=== PATIENT | male | born 2000 | race Caucasian/White ===

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

== ENCOUNTER 2024-10-07 18:30 | Emergency (ER) | payer SELFPAY ==
[2024-10-07 18:31] VITALS: BP 149/100; PULSE 117; RESP 16; TEMP 37.1; O2SAT 99; BMI 34.9
--- NOTE | 2024-10-07 18:37 | ED.VIS.DYS ---
HPI History of Present Illness Chief Complaint: Shortness of Breath PFSH PFSH Medical History no medical history Home Medications ?Medication ?Instructions ?Recorded ?Last Taken ?Type NK 04/01/18 Unknown History Allergy/AdvReac Type Severity Reaction Status Date / Time No Known Allergies Allergy Verified 10/07/24 18:31 Social History (System 04/08/18 @ 08:04 by Haydee Smith) Smoking Status: Former smoker EXAM Physical Exam Const Vital Signs: 10/07/24 18:31 10/07/24 19:12 10/07/24 19:13 Temperature 98.7 F Temperature Source Oral Pulse Rate 117 H Respiratory Rate 16 Respiratory Effort Short of Breath Respiratory Depth Normal Respiratory Pattern Normal Blood Pressure 149/100 H Blood Pressure Mean 116 Pulse Ox 99 Oxygen Delivery Method Room Air Room Air 10/07/24 19:53 10/07/24 20:09 Temperature Temperature Source Pulse Rate 94 96 Respiratory Rate 12 16 Respiratory Effort Respiratory Depth Respiratory Pattern Blood Pressure 130/88 H Blood Pressure Mean 102 Pulse Ox 98 95 Oxygen Delivery Method Room Air Room Air MDM MDM MDM Narrative Medical decision making narrative: HISTORY OF PRESENT ILLNESS: Chief complaint: Diffuse weakness, dizzy 24-year-old male presents with weakness and dizziness for a few days. He further states he has been feeling well. Diffusely weak and dizzy. Denies vomiting. Denies recent illnesses. Does note a dry cough. Denies muscle aches. Denies bleeding diathesis. Denies chest pain. Denies family or personal history of sudden cardiac The patient denies recent surgery in the last 4 weeks or immobilization in the last 3 days, denies previous diagnosis of DVT or PE, hemoptysis, unilateral leg swelling or malignancy with treatment the last 6 months or palliative. No estrogen use noted. REVIEW OF SYSTEMS: Pertinent positives: Weakness, dizziness Pertinent negatives: Vomiting PHYSICAL EXAM: Nursing triage notes reviewed, Vital signs reviewed Constitutional: please see mdm HENT: MMM Eyes: Pupils equal round and reactive to light, Extraocular muscles intact Neck: No stridor, no JVD, full neck ROM Lungs: Clear to auscultation, No wheezing or rales. No increased work of breathing, no conversational dyspnea, no accessory muscle use, no nasal flaring. No respiratory distress noted Heart: Regular rate and rhythm, No murmurs, No rubs and No gallops, 2+ distal pulses (radial, femoral, posterior tibial) in all extremities Abdomen: Soft, there is no tenderness, rigidity, rebound or guarding, no obvious peritoneal signs, no palpable pulsatile abdominal masses, no auscultated abdominal bruit : No CVAT Extremities: No edema Neuro: No new focal neurological deficits, cranial nerves II through XII intact, 5/5 strength in all present extremities. Intact sensation to light touch in all present extremities, 2+ reflexes bilateral patella tendons. Skin: No rash or lesions noted MEDICAL DECISION MAKING: Chief Complaint: please see HPI External records reviewed: Reviewed prior cardiovascular testing. No recent echocardiograms or stress test noted in the chart Factors affecting care: none Social determinants of health: none History obtained from others: none Consults: none MDM Narrative: The patient was initially tachycardic heart rate 117 otherwise afebrile and nontoxic-appearing saturating 95% room air I considered the following differential diagnosis: Flu, pneumonia, ACS, arrhythmia, anemia, PE I obtained a broad lab and imaging workup to further elucidate the etiology of the patient's complaints ALL IMAGES (IF OBTAINED) HAVE BEEN PERSONALLY REVIEWED AND INTERPRETED BY MYSELF. EKG with sinus tachycardia rate of 122, normal axis, normal intervals, no sign of right heart strain, no STEMI D-dimer negative making VTE less likely BNP negative making heart failure less likely High-sensitivity troponin is negative, no evidence of myocardial ischemia COVID RSV flu negative I have personally reviewed the patient's chest x-ray. Chest x-ray is unremarkable for pulmonary edema, pneumothorax, pneumonia or focal cardiopulmonary abnormality. Upon reassessment patient heart rate improved from 117-96 The synthesis of the patient's history, physical exam, laboratory suggest no acute life-limiting etiology including PE, ACS, arrhythmia, anemia, pneumothorax, pneumonia, viral infection he is appropriate discharge home with close outpatient follow-up for further evaluation and treatment. Strict return precautions were discussed The patient and/or family, caregivers express understanding. The patient and/or family, caregivers agrees with the plan. Shared decision making: I will have a discussion with the patient and or visitors regarding risk/benefits of further testing or admission. They will be made aware of of the risk/benefits inherent in this decision they will be given the opportunity to voice understanding. Total critical care time today provided was at least 0 minutes. This excludes separately billable procedures. Critical care time (if documented) is secondary to the patient having high probability of clinically significant/life threatening deterioration in the patient's condition which required my urgent intervention. Impression: 1. Dyspnea 2. Diffuse weakness Dispo: Discharge home This note was generated with [employer] dictation software. It may contain incorrect words, spelling, and punctuation that were not noted in review of the chart prior to signing. Lab Data Labs: Laboratory Results - last 24 hr 10/07/24 19:08 WBC 7.2 RBC 5.07 Hgb 15.9 Hct 44.4 MCV 87.6 MCH 31.4 MCHC 35.8 RDW Std Deviation 38.6 RDW Coeff of Yvonne 12.1 Plt Count 300 MPV 9.4 Immature Gran % (Auto) 0.300 Neut % (Auto) 61.6 Lymph % (Auto) 28.4 [place] % (Auto) 7.6 Eos % (Auto) 1.5 Baso % (Auto) 0.6 Absolute Neuts (auto) 4.4 Absolute Lymphs (auto) 2.04 Nucleated RBC % 0 D-Dimer Quant (PE/DVT) 0.27 Sodium 139 Potassium 3.4 Chloride 104 Carbon Dioxide 19.4 L Anion Gap 15 BUN 13 Creatinine 0.92 Estim Creat Clear Calc 154.23 Est GFR (MDRD) Non-Af 119 BUN/Creatinine Ratio 13.9 Glucose 93 Calcium 10.1 Troponin T High Sens < 6 NT pro BNP II < 36 Radiography Diagnostic Testing: Clinical Impression(s) from Imaging Studies Chest X-Ray 10/07/24 19:30 IMPRESSION: No acute cardiopulmonary abnormality. Reading Location: [id number] Discharge Plan Triage Chief Complaint: Shortness of Breath ED Provider: Saad Pak Dx/Rx/DC Orders Prescriptions: No Action NK Primary Care Provider: Care Physician,No Primary Referrals: NOT,DEFINED [Non-Staff] - Print Language: Greek
--- NOTE | 2024-10-07 18:44 | EKG12_ITS ---
Test Reason : Blood Pressure : */* mmHG Vent. Rate : 122 BPM Atrial Rate : 122 BPM P-R Int : 146 ms QRS Dur : 98 ms QT Int : 326 ms P-R-T Axes : 51 -6 28 degrees QTcB Int : 464 ms Sinus tachycardia Otherwise normal ECG Confirmed by CEASAR ARITA, ANTONIO ([id number]), material expeditor JOHN SONG ([id number]) on 10/10/2024 8:50:06 AM Referred By: Confirmed By: ANTONIO MCDONOUGH MD
[2024-10-07 19:25] LABS: Absolute Lymphocyte Count 2.04 X10^3/uL (0.83-4.51); Absolute Neutrophil Count 4.4 X10^3/uL (2.0-7.7); Basophil# 0.04 X10^3/uL; Basophil% 0.6 % (0-1); Eosinophil# 0.11 X10^3/uL; Eosinophils% 1.5 % (0-5); Hematocrit 44.4 % (40-54); Hemoglobin 15.9 g/dL (13.0-16.5); Lymphocyte # 2.04 X10^3/ul (0.83-4.51); Lymphocyte % 28.4 % (19-41); Mean Corp Hgb Conc 35.8 g/dL (32-36); Mean Corpuscular Hgb 31.4 pg (27.0-32.0); Mean Corpuscular Volume 87.6 fL (80-94); Mean Platelet Vol. 9.4 fl (6.2-12.0); Monocyte# 0.55 X10^3/uL; Monocyte% 7.6 % (0-10); NRBC Flagged by Analyzer 0 % (0-5); Neutrophil # 4.43 X10^3/uL (2.7-7.7); Neutrophil % 61.6 % (47-70); Platelet Count 300 K/mm3 (150-450); RBC Distribution Width CV 12.1 % (11.6-14.6); RBC Distribution Width SD 38.6 fl (35.1-43.9); Red Blood Count 5.07 M/mm3 (4.6-6.2); White Blood Count 7.2 K/mm3 (4.4-11.0)
[2024-10-07] MEDS: 0.9% Normal Saline (500mL Bag) 500 ML 999 ML IV (19:28)
--- NOTE | 2024-10-07 19:30 | RAD_ITS ---
PROCEDURE: CHEST PA AND LATERAL 10/07/2024 REASON FOR EXAM: SHORTNESS OF BREATH TECHNIQUE: Frontal and lateral views of the chest. COMPARISON: None FINDINGS: Hardware: None Heart: The heart size is normal. Mediastinum: The mediastinal contour is unremarkable. Lungs: The lungs are clear. Bones: The bones are unremarkable. RAD/Chest PA and Lateral IMPRESSION: No acute cardiopulmonary abnormality. Reading Location: [id number]
[2024-10-07 19:45] LABS: Anion Gap 15 (5-15); BUN 13 mg/dL (4-19); BUN/Creat Ratio 13.9 RATIO (10-20); Calcium,Total 10.1 mg/dL (7.6-11.0); Carbon Dioxide 19.4 mmol/L (21.0-32.0); Chloride 104 mmol/L (98-108); Creatinine, Serum 0.92 mg/dL (0.70-1.20); EST Glomerular Filtration Rate 119 (>60); Estimated Creatinine Clearance 154.23 ml/min (50-250); Glucose 93 mg/dL (70-99); Potassium 3.4 mmol/L (3.3-5.1); Sodium Level 139 mmol/L (133-145)
[2024-10-07 19:50] LABS: Pro- Brain NATRIURETIC PEPTIDE < 36 pg/mL (<=450); Troponin T High Sensitivity < 6 ng/L (<=22)
[2024-10-07 19:53] VITALS: PULSE 94; RESP 12; O2SAT 98
[2024-10-07 20:09] VITALS: BP 130/88; PULSE 96; RESP 16; O2SAT 95
[2024-10-07 20:12] LABS: D-Dimer Quantitative (DVT/PE) 0.27 FEU/ug/m (0.27-0.49)
[2024-10-07 21:58] LABS: Troponin T High Sens 2 HR 6 ng/L (<=22)
[2024-10-07 22:08] VITALS: BP 118/84; PULSE 87; RESP 21; TEMP 37.1; O2SAT 97
== END 2024-10-07 22:18 | disposition home or self-care (01) ==
PROVIDERS: Emergency Provider Emergency Medicine; Visit Provider Emergency Medicine
DX: R06.02 Shortness of breath (principal); R53.1 Weakness; Z87.891 Personal history of nicotine dependence; R42 Dizziness and giddiness
CPT/HCPCS: 71046; 80048; 83880; 84484; 85025; 85379; 87631; 93005; 96360; 96361; 99284